=== PATIENT | male | born 1985 | race Caucasian/White ===

== ENCOUNTER 2019-12-29 09:19 | Emergency (ER) | payer OTHER ==
[~2019-12-29] VITALS: Ht 172.7 cm; Wt 142.9 kg
--- NOTE | 2019-12-29 09:25 | Emergency Department Note ---
History of Present Illnes History of Present Illness Chief Complaint: Genitourinary History of Present Illness This is a 34 year old male presents with R testicular pain of one day duration. Onset (how long ago): hour(s) Location: R testicle Radiation: Reports non-radiation Severity: mild Onset quality: gradual Duration (how long): hour(s) Timing of current episode: constant Progression: unchanged Chronicity: new Relieving factors: none Exacerbating factors: none Associated symptoms: Denies denies other symptoms, Denies confusion, Denies chest pain, Denies cough, Denies diaphoresis, Denies fever/chills, Denies headaches, Denies loss of appetite, Denies malaise, Denies nausea/vomiting, Denies rash, Denies seizure, Denies shortness of breath, Denies syncope, Denies weakness, Denies other Past Medical/Family History Physician Review I have reviewed the patient's past medical and family history. Any updates have been documented here. Review of Systems Review of Systems Constitutional: Reports no symptoms EENTM: Reports no symptoms Cardiovascular: Reports no symptoms Respiratory: Reports no symptoms Gastrointestinal: Reports no symptoms Genitourinary: Reports pain Musculoskeletal: Reports no symptoms Integumentary: Reports no symptoms Neurological: Reports no symptoms Psychological: Reports no symptoms Endocrine: Reports no symptoms Hematological/Lymphatic: Reports no symptoms Physical Exam Related Data Allergies: Coded Allergies: No Known Allergies (Unverified , 12/29/19) Triage Vital Signs Vital Signs Date Time Temp Pulse Resp B/P (MAP) Pulse Ox O2 Delivery O2 Flow Rate FiO2 12/29/19 09:22 98.1 78 16 159/92 100 Room Air Vital signs reviewed: Yes Physical Exam CONSTITUTIONAL Constitutional: Present well-developed, Present well-nourished HENT HENT: Present normocephalic, Present atraumatic, Present oropharynx clear/moist, Present nose normal HENT L/R: Present left ext ear normal, Present right ext ear normal EYES Eyes: Reports PERRL, Reports conjunctivae normal NECK Neck: Present ROM normal PULMONARY Pulmonary: Present effort normal, Present breath sounds normal CARDIOVASCULAR Cardiovascular: Present regular rhythm, Present heart sounds normal, Present capillary refill normal, Present normal rate GASTROINTESTINAL Abdominal: Present soft, Present nontender, Present bowel sounds normal GENITOURINARY Genitourinary: Present other SKIN Skin: Present warm, Present dry MUSCULOSKELETAL Musculoskeletal: Present ROM normal NEUROLOGICAL Neurological: Present alert, Present oriented x 3, Present no gross motor or sensory deficits PSYCHOLOGICAL Psychological: Present mood/affect normal, Present judgement normal Results Laboratory Lab results reviewed: Yes Imaging Imaging results reviewed: Yes Impressions [place] [id number] Patient Name: TAINA ANDERSON MR #: [id number] : 1985 Age/Sex: 34/M Req #: [id number] [facility] [place] Physician: Ordered by: JABIER JADE DO Report #: [id number] Location: ER Room/Bed: Procedure: [id number] US/US TESTICULAR Exam Date: 12/29/19 Exam Time: 0943 REPORT STATUS: Signed EXAM: Scrotal Ultrasound INDICATION: Right testicular pain ^R testicular pain COMPARISON: None TECHNIQUE: Transverse and longitudinal images were obtained of the scrotum with grayscale imaging, color Doppler and spectral waveform analysis. FINDINGS: Right testis: Size: 4.2 x 2.2 x 2.9 cm, normal in size. Echogenicity: Normal Mass/Cysts: None Left testis: Size: 3.6 x 1.8 x 3.6 cm, normal in size. Echogenicity: Normal Mass/Cysts: None Epididymis: Appearance: Normal in size without increased vascularity. Mass/Cysts: 0.2 cm left epididymal cyst/spermatocele. Extratesticular: Masses: None Fluid collections: Trace right and left hydroceles. Doppler: Normal arterial flow to both testes and symmetrical flow on color Doppler evaluation is seen. No evidence of testicular torsion. IMPRESSION: 1. No evidence of testicular torsion. 2. 0.2 cm left epididymal cyst/spermatocele. Trace right and left hydroceles. Signed by: Dr. Jey Dobson M.D. on 12/29/2019 10:17 AM Dictated By: JYE DOBSON MD, MD [id number] Transcribed By: RAFAEL on 12/31/19 1023 COPY TO: JABIER JADE DO~ Assessment & Plan Medical Decision Making MDM diff dx : epididymitis, testicular torsion, inguinal hernia Assessment & Plan Final Impression: (1) Right testicular pain Depart Disposition: HOME, SELF-CARE JABIER JADE DO Dec 29, 2019 09:25
[2019-12-29] MEDS ORDERED: HYDROCODONE/APAP 5MG-325MG TAB PO ONE (09:30)
--- OUTSIDE RECORDS SUMMARY | 2019-12-29 09:56 | XMS REPORT | Continuity of Care Document ---
Author Author Shagufta Wilson [employer] TAINA Palomares [employer] Address Unknown Phone Unavailable Care Team Providers Care Therapy Teacher Name Role Phone [employer] Unavailable Un available Problems Problem Status Onset Date Classification Date Reported Comments Source HYPERTENSIVE URGENCY Active 07/31/2016 [facility] DIZZINESS Active 08/14/2015 [facility] Discharge Diagnosis: Headache 08/14/2015 08/17/2015 [facility] Discharge Diagnosis: Sinus pain 08/14/2015 08/17/2015 [facility] Hypertensive disorder, systemic arterial (disorder) Resolved Problem 08/04/2016 [facility] Medications Medication Details Route Status Patient Instructions Ordering Provider Order Date Source Acetaminophen 300 MG / Codeine Phosphate 30 MG Oral Tablet [Tylenol with Codeine #3] 1 tab, PO, Q6H, PRN Pain, X 7 day, # 28 tab, 0 Refill(s) Active 08/01/2016 [facility] Amlodipine Notes: (Same as: No rvasc) Inactive 08/01/2016 [facility] Alprazolam 0.25 MG Oral Tablet [Xanax] Notes: With food or milk (Same as: Xanax) No Longer Active 07/31/2016 [facility] ketOROLAC 30 mg/mL injectable solution 4 days MEDICATION WASTE Product Size: 30 mg Product Wasted: __0_ mg No Longer Active 07/31/2016 [facility] Ativan Notes: (Same as: Ativan) Inactive 07/31/2016 [facility] Hydralazine Notes: (Same as: A presoline) Push over 5 minutes No Longer Active 07/31/2016 [facility] Amlodipine 5 mg, PO, Daily, 0 Refill(s) Active 07/31/2016 [facility] Sodium Chloride 0.154 MEQ/ML Injectable Solution 1,000 mL, Rate: 125 ml/hr, Infuse over: 8 hr, Route: IV, Dosing Weight 131.818 kg, Total Volume: 1,000, Start date: 07/31/16 13:26:00 CDT, Duration: 30 day, Stop date: 08/30/16 13:25:00 CDT No Longer Active 07/31/2016 [facility] Ondansetron Notes: (Same as: Fidel scott) MEDICATION WASTE Product Size: 4 mg Product Wasted: ___ mg No Longer Active 07/31/2016 [facility] Acetaminophen 325 MG / Hydrocodone Leonid trate 5 MG Oral Tablet Notes: (Same as: Indore 325/5) Do not ex ceed 4gm/day of acetaminophen. No Longer Active 07/31/2016 [facility] Ketorolac 30 mg, Route: IVP, D rug form: INJ, ONCE, Dosing Weight 131.818, kg, Priority: STAT, Start date: 07/31/16 12:32:00 CDT, Stop date: 07/31/16 12:32:00 CDT Inactive 07/31/2016 [facility] Sodium Chloride 0.9% IV 25 mL, Route: IV, Start date: 07/31/16 12:30:00 CDT, Duration: 30 day, Stop date: 08/30/16 12:29:00 CDT, PRN Line Flush No Longer Active 07/31/2016 [facility] Hydralazine Notes: (Same as: A presoline) Push over 5 minutes Inactive 07/31/2016 [facility] Labetalol 10 mg, Route: IV, ON CE, Dosing Weight 131.818, kg, Priority: STAT, Start date: 07/31/16 12:14:00 CDT, Stop date: 07/31/16 12:14:00 CDT Inactive 07/31/2016 [facility] Saline Flush 0.9% Notes: (Same as: BD Posiflush) No Longer Active 07/31/2016 [facility] Sodium Chloride 0.154 MEQ/ML Injectable Solution 1,000 mL, 1,000 ml/hr, Infuse Over: 1 hr, Route: IV, 1,000, Drug form: INJ, ONCE, Priority: STAT, Dosing Weight 136.364 kg, Start date: 08/14/15 17:15:00 CDT, Duration: 1 doses or times, Stop date: 08/14/15 17:15:00 CDT Inactive 08/14/2015 [facility] Ketorolac 4 days MEDICA TION WASTE Product Size: 30 mg Product Wasted: _0__ mg Inactive 08/14/2015 [facility] Reglan Notes: (Same as: Reglan) Inactive 08/14/2015 [facility] Acetaminophen 325 MG / Hydrocodone Leonid trate 5 MG Oral Tablet [Indore 5/325] 1 tab, Route: PO, Drug Form: TAB, Dosing Weight 136.364, kg, ONCE, STAT, Start date: 08/14/15 16:29:00 CDT, Stop date: 08/14/15 16:29:00 CDT Inactive 08/14/2015 [facility] Allergies, Adverse Reactions, Alerts No Known Medication Allergies Immunizations Immunization Date Given Site Status Last Updated Comments Source pneumococcal 23-valent vaccine 08/01/2016 Left Deltoid completed Idaniaff [facility] Results Order Name Results Value Reference Range Date Interpretation Comments Source IMMUNOLOGY HIV Ag/Ab 4th Gen Negat rupali *NA* (07/31/16 5:22 PM) Negative 07/31/2016 [facility] CARDIAC ENZYMES Total CK 107 12 - 191 07/31/2016 [facility] CARDIAC ENZYMES CK MB 1.1 0.5 - 3.6 07/31/2016 [facility] CARDIAC ENZYMES Troponin-I <0.02 0.00 - 0.40 07/31/2016 [facility] CARDIAC ENZYMES CK MB Index 1.0 0.0 - 2.5 07/31/2016 [facility] CHEM PANEL eGFR 116 07/31/2016 Result Comment: The eGFR is calculated using the CKD-EPI formula. In most young, healthy individuals the eGFR will be >90 mL/min/1.73m2. The eGFR declines with age. An eGFR of 60-89 may be normal in some populations, particularly the elderly, for whom the CKD-EPI formula has not been extensively validated. Use of the eGFR is not recommended in the following populations:

Individuals with unstable creatinine concentrations, including patients and those with serious co-morbid conditions.

Patients with extremes in muscle mass or diet.

The data above are obtained from the National Kidney Disease Education Program (NKDEP) which additionally recommends that when the eGFR is used in patients with extremes of body mass index for purposes of drug dosing, the eGFR should be multiplied by the estimated BMI. [facility] CHEM PANEL A/G Ratio 0.9 0.7 - 1.6 07/31/2016 [facility] CHEM PANEL Globulin 4.1 2.7 - 4.2 07/31/2016 [facility] CHEM PANEL B/C Ratio 16 6 - 25 07/31/2016 [facility] CHEM PANEL Alk Phos 118 39 - 136 07/31/2016 [facility] CHEM PANEL AGAP 13.9 10.0 - 20.0 07/31/2016 [facility] CHEM PANEL Bili Total 0.4 0.2 - 1.3 07/31/2016 [facility] CHEM PANEL ALT 46 0 - 65 07/31/2016 [facility] CHEM PANEL Albumin Lvl 3.7 3.5 - 5.0 07/31/2016 [facility] CHEM PANEL AST 24 0 - 37 07/31/2016 [facility] CHEM PANEL Chloride Lvl 102 95 - 109 07/31/2016 [facility] CHEM PANEL CO2 27 24 - 32 07/31/2016 [facility] CHEM PANEL Calcium Lvl 8.8 8.5 - 10.5 07/31/2016 [facility] CHEM PANEL Total Protein 7.8 6.4 - 8.4 07/31/2016 [facility] CHEM PANEL Sodium Lvl 139 135 - 145 07/31/2016 [facility] CHEM PANEL Potassium Lvl 3.9 3.5 - 5.1 07/31/2016 [facility] CHEM PANEL Creatinine Lvl 0.85 0.50 - 1.40 07/31/2016 [facility] CHEM PANEL BUN 14 7 - 22 07/31/2016 [facility] CHEM PANEL Glucose Lvl 99 70 - 99 07/31/2016 [facility] HEMATOLOGY Hct 43.5 42.0 - 54.0 07/31/2016 [facility] HEMATOLOGY MCHC 34.6 32.0 - 36.0 07/31/2016 [facility] HEMATOLOGY MCH 28.4 27.0 - 31.0 07/31/2016 [facility] HEMATOLOGY RBC 5.31 4.70 - 6.10 07/31/2016 [facility] HEMATOLOGY Hgb 15.1 14.0 - 18.0 07/31/2016 [facility] HEMATOLOGY WBC 9.1 3.7 - 10.4 07/31/2016 [facility] HEMATOLOGY MCV 82.0 80.0 - 94.0 07/31/2016 [facility] HEMATOLOGY Platelet 285 133 - 450 07/31/2016 [facility] HEMATOLOGY MPV 8.3 7.4 - 10.4 07/31/2016 [facility] HEMATOLOGY RDW 12.6 11.5 - 14.5 07/31/2016 [facility] HEMATOLOGY Eosinophils # 0.1 0.0 - 0.5 07/31/2016 [facility] HEMATOLOGY Monocytes # 0.8 0.0 - 0.8 07/31/2016 [facility] HEMATOLOGY Basophils # 0.1 0.0 - 0.2 07/31/2016 [facility] HEMATOLOGY Lymphocytes 24.4 20.0 - 40.0 07/31/2016 [facility] HEMATOLOGY Segs 65.2 45.0 - 75.0 07/31/2016 [facility] HEMATOLOGY Eosinophils 1.4 0.0 - 4.0 07/31/2016 [facility] HEMATOLOGY Basophils 0.6 0.0 - 1.0 07/31/2016 [facility] HEMATOLOGY Monocytes 8.4 2.0 - 12.0 07/31/2016 [facility] HEMATOLOGY Lymphocytes # 2.2 1.0 - 5.5 07/31/2016 [facility] HEMATOLOGY Segs-Bands # 6.0 1.5 - 8.1 07/31/2016 [facility] URINE AND STOOL UA Urobilinogen <=1.0 mg/dL 0.1 - 1.0 07/31/2016 [facility] URINE AND STOOL UA Sq Epi Occasional /LPF Few /LPF 07/31/2016 [facility] URINE AND STOOL UA Leuk Est Negative (07/31/16 9:54 AM) Negative 07/31/2016 [facility] URINE AND STOOL UA RBC <1 0 - 2 07/31/2016 [facility] URINE AND STOOL UA Color Light Yellow *NA* (07/31/16 9:54 AM) Yellow 07/31/2016 [facility] URINE AND STOOL UA pH 6.0 5.0 - 8.0 07/31/2016 [facility] URINE AND STOOL UA Spec Grav 1.006 <=1.030 07/31/2016 [facility] URINE AND STOOL UA Turbidity Clear (07/31/16 9:54 AM) Clear 07/31/2016 [facility] URINE AND STOOL UA Ketones Negative mg/dL Negative mg/dL 07/31/2016 [facility] URINE AND STOOL UA Blood Negative (07/31/16 9:54 AM) Negative 07/31/2016 [facility] URINE AND STOOL UA Bili Negative *NA* (07/31/16 9:54 AM) Negative 07/31/2016 [facility] URINE AND STOOL UA Nitrite Negative (07/31/16 9:54 AM) Negative 07/31/2016 [facility] URINE AND STOOL UA Protein Negative mg/dL Negative mg/dL 07/31/2016 [facility] URINE AND STOOL UA Glucose Negative mg/dL Negative mg/dL 07/31/2016 [facility] CHEM PANEL Magnesium Lvl 2.1 1.8 - 2.4 08/14/2015 [facility] CHEM PANEL Creatinine Lvl 0.96 0.50 - 1.40 08/14/2015 [facility] CHEM PANEL BUN 13 7 - 22 08/14/2015 [facility] CHEM PANEL Glucose Lvl 112 70 - 99 08/14/2015 [facility] CHEM PANEL Calcium Lvl 9.4 8.5 - 10.5 08/14/2015 [facility] CHEM PANEL CO2 27 24 - 32 08/14/2015 [facility] CHEM PANEL Chloride Lvl 104 95 - 109 08/14/2015 [facility] CHEM PANEL Potassium Lvl 3.9 3.5 - 5.1 08/14/2015 [facility] CHEM PANEL Sodium Lvl 139 135 - 145 08/14/2015 [facility] CHEM PANEL AGAP 11.9 10.0 - 20.0 08/14/2015 [facility] CHEM PANEL eGFR 106 08/14/2015 Result Comment: The eGFR is calculated using the CKD-EPI formula. In most young, healthy individuals the eGFR will be >90 mL/min/1.73m2. The eGFR declines with age. An eGFR of 60-89 may be normal in some populations, particularly the elderly, for whom the CKD-EPI formula has not been extensively validated. Use of the eGFR is not recommended in the following populations:

Individuals with unstable creatinine concentrations, including patients and those with serious co-morbid conditions.

Patients with extremes in muscle mass or diet.

The data above are obtained from the National Kidney Disease Education Program (NKDEP) which additionally recommends that when the eGFR is used in patients with extremes of body mass index for purposes of drug dosing, the eGFR should be multiplied by the estimated BMI. [facility] HEMATOLOGY RBC 5.52 4.70 - 6.10 08/14/2015 [facility] HEMATOLOGY Hgb 15.5 14.0 - 18.0 08/14/2015 [facility] HEMATOLOGY Hct 46.6 42.0 - 54.0 08/14/2015 [facility] HEMATOLOGY MCV 84.3 80.0 - 94.0 08/14/2015 [facility] MCH 28.0 27.0 - 31.0 08/14/2015 [facility] HEMATOLOGY MPV 7.9 7.4 - 10.4 08/14/2015 [facility] HEMATOLOGY RDW 12.7 11.5 - 14.5 08/14/2015 [facility] HEMATOLOGY Platelet 343 133 - 450 08/14/2015 [facility] HEMATOLOGY MCHC 33.2 32.0 - 36.0 08/14/2015 [facility] HEMATOLOGY WBC 9.9 3.7 - 10.4 08/14/2015 [facility] HEMATOLOGY Eosinophils 0.7 0.0 - 4.0 08/14/2015 [facility] HEMATOLOGY Basophils 0.3 0.0 - 1.0 08/14/2015 [facility] HEMATOLOGY Lymphocytes 20.0 20.0 - 40.0 08/14/2015 [facility] HEMATOLOGY Segs 71.1 45.0 - 75.0 08/14/2015 [facility] HEMATOLOGY Monocytes 7.9 2.0 - 12.0 08/14/2015 [facility] HEMATOLOGY Basophils # 0.0 0.0 - 0.2 08/14/2015 [facility] HEMATOLOGY Lymphocytes # 2.0 1.0 - 5.5 08/14/2015 [facility] HEMATOLOGY Segs-Bands # 7.0 1.5 - 8.1 08/14/2015 [facility] HEMATOLOGY Eosinophils # 0.1 0.0 - 0.5 08/14/2015 [facility] HEMATOLOGY Monocytes # 0.8 0.0 - 0.8 08/14/2015 [facility] Pathology Reports No Data Provided for This Section Diagnostic Reports Report Value Date Source Spine lumbar wo contrast CT Sp ine lumbar wo contrast CT, 08/01/2016 11:00 AM CDT HISTORY: Low back pain and weakness COMPARISON: None TECHNIQUE: Multiple contiguous axials images were obtained through the lumbar spine without contrast. Coronal and sagittal reconstructed images were obtained. CT Radiation Dose DLP 1377 mGy-cm FINDINGS: 5 lumbar type vertebral bodies. There is no evidence for acute fracture. Vertebral heights are maintained. Anatomic alignment. Minimal facet arthrosis. There is no high-grade bony central canal or foraminal stenosis. The paraspinal soft tissues appear unremarkable. IMPRESSION: 1. No acute fracture or malalignment lum bar spine. Minimal facet osteoarthropathy. No significant bony central canal or foraminal stenosis. If there is persistent clinical concern consider follow-up MRI. SL: [id number] 08/01/2016 [facility] Brain wo contrast MRI Procedur e: MRI Brain without Contrast. Clinical Indication: Bilateral facial numbness, tingling. Comparison: Head CT 07/31/2016. TECHNIQUE: MRI of the brain is performed without contrast. Only diffusion- weighted and ADC mapping images could be obtained before the patient refused to continue imaging. FINDINGS: BRAIN PARENCHYMA: Diffusion-weighted imaging fails to demonstrate evidence of acute ischemia. The ventricular systems are midline and nondilated. No intracranial mass is observed. IMPRESSION: 1. Limited MRI of the brain without evid ence of acute infarct on diffusion- weighted imaging. SL:[id number] 07/31/2016 [facility] Brain wo contrast CT Addendum: I have reviewed this examination and concur with the interpretation. NON CONTRAST HEAD CT: HISTORY: Altered mental status, weakness Noncontrast axial scans were obtained through the brain utilizing soft tissue and bone windows. Comparison made to 08/14/2015. No intracranial hemorrhage, mass or midline shift noted. Normal attenuation is found throughout the brain parenchyma. No extra-axial fluid collections are observed. No evidence of acute infarct. Review of the bone windows shows no evidence of calvarial fracture. Mastoid air cells are clear. There are some chronic mucosal thickening in each maxillary sinus. IMPRESSION: No acute intracranial abnormality. SL: [id number] 07/31/2016 [facility] Scrotal/Testicle w Doppler US PROCEDURE: SCROTAL ULTRASOUND 07/31/2016. INDICATION: Bilateral testicular pain and fullness for 2 weeks, right greater than left. COMPARISON: None relevant. TECHNIQUE: Sonographic evaluation of the scrotum and testes was performed using high resolution B-mode imaging, pulse and color Doppler imaging. FINDINGS: TESTES: The right testicle measures 4.3 x 2.1 x 2.9 cm. The left testicle measures 4 x 2 x 2.4 cm. The testes are normal in contour, morphology and echogenicity. There are no testicular masses or calcifications. Blood flow is normal and symmetrical. EPIDIDYMIDES: Normal epididymal size with 2 left epididymal head cysts and/or spermatoceles measuring between 2-4 mm, the largest containing low level echo internal debris. SCROTUM: Low volume left scrotal hydrocele. No varicocele identified. IMPRESSION: 1. No sonographic evidence of testicular torsion, inflammation or mass. 2. Low-volume left scrotal hydrocele. 3. Small left epididymal head cysts and/ or spermatoceles. SL: [id number] 07/31/2016 [facility] Brain wo contrast CT PROCEDURE : CT HEAD WITHOUT CONTRAST Clinical Indication: Dizziness and disorientation 2 hours ago. Comparison: None TECHNIQUE: CT images were obtained from the foramen magnum to the vertex without the use of intravenous contrast on a multidetector CT. DLP: 1257 mGy-cm FINDINGS: BRAIN PARENCHYMA: There are normal concepcion-white interfaces, sulci and gyri. There are no focal mass lesions on this noncontrast head CT. There is no mass effect, midline shift or edema. There are no intra-axial or extra-axial fluid collections, intraventricular or intraparenchymal hemorrhage. The pineal, sellar, brainstem, cerebellum and skull base regions appear unremarkable. VENTRICLES: The ventricular system is normal. The basilar cisterns are normal. ORBITS, MASTOIDS AND PARANASAL SINUSES: The visualized orbits and paranasal sinuses are unremarkable. The mastoid air cells are clear. SKULL: The calvarium is intact. IMPRESSION: Unremarkable noncontrast head CT with no mass, hemorrhage or subacute stroke. END IMPRESSION SL:[id number] 08/14/2015 [facility] Consultation Notes No Data Provided for This Section Discharge Summaries No Data Provided for This Section History and Physicals No Data Provided for This Section Vital Signs Vital Sign Value Date Comments Source Respitory Rate 18 08/01/2016 [facility] Systolic (mm Hg) 126 08/01/2016 [facility] Diastolic (mm Hg) 83 08/01/2016 [facility] Heart Rate 82 08/01/2016 [facility] Temperature Oral (F) 98.1 F 08/01/2016 [facility] Systolic (mm Hg) 123 08/01/2016 [facility] Diastolic (mm Hg) 78 08/01/2016 [facility] Respitory Rate 18 08/01/2016 [facility] Heart Rate 69 08/01/2016 [facility] Temperature Oral (F) 97.7 F 08/01/2016 [facility] Temperature Oral (F) 98.0 F 08/01/2016 [facility] Respitory Rate 18 08/01/2016 [facility] Heart Rate 77 08/01/2016 [facility] Systolic (mm Hg) 129 08/01/2016 [facility] Diastolic (mm Hg) 75 08/01/2016 [facility] BMI Calculated 44.95 07/31/2016 [facility] Weight 134.091 07/31/2016 [facility] Height 172.72 cm 07/31/2016 [facility] Weight 131.818 07/31/2016 [facility] Height 172.72 cm 07/31/2016 [facility] BMI Calculated 44.19 07/31/2016 [facility] Temperature Oral (F) 98 F 08/15/2015 [facility] Systolic (mm Hg) 129 08/15/2015 [facility] Diastolic (mm Hg) 85 08/15/2015 [facility] Heart Rate 88 08/15/2015 [facility] Respitory Rate 20 08/15/2015 [facility] Weight 136.364 08/14/2015 [facility] Temperature Oral (F) 98.1 F 08/14/2015 [facility] Respitory Rate 18 08/14/2015 [facility] Heart Rate 89 08/14/2015 [facility] Systolic (mm Hg) 141 08/14/2015 [facility] Diastolic (mm Hg) 91 08/14/2015 [facility] Encounters Location Location Details Encounter Type Encounter Number Reason For Visit Attending Provider ADM Date DC Date Status Source [facility] [id number] Milli Jacobs 08/14/2015 08/15/2015 [facility] Observation [id number] Breana Lozano 07/31/2016 08/01/2016 [facility] Procedures Procedure Code Date Perfomer Comments Source Cholecystectomy [id number] [facility] Reconstruction of penis [id number] [facility] Repair of rotator cuff of shoulder [id number] [facility] Tonsillectomy [id number] [facility] Assessment and Plan No Data Provided for This Section Plan of Care No Data Provided for This Section Social History Social History Date Source Social History TypeResponse Smoking Status Never smoker; Exposure to Tobacco Smoke None; Cigarette Smoking Last 365 Days No; Reg Smoking Cessation Counseling No 07/31/2016 [facility] Family History No Data Provided for This Section Advance Directives No Data Provided for This Section Functional Status No Data Provided for This Section
--- NOTE | 2019-12-29 10:21 | Diagnostic Imaging Report ---
EXAM: Scrotal Ultrasound INDICATION: Right testicular pain ^R testicular pain COMPARISON: None TECHNIQUE: Transverse and longitudinal images were obtained of the scrotum with grayscale imaging, color Doppler and spectral waveform analysis. FINDINGS: Right testis: Size: 4.2 x 2.2 x 2.9 cm, normal in size. Echogenicity: Normal Mass/Cysts: None Left testis: Size: 3.6 x 1.8 x 3.6 cm, normal in size. Echogenicity: Normal Mass/Cysts: None Epididymis: Appearance: Normal in size without increased vascularity. Mass/Cysts: 0.2 cm left epididymal cyst/spermatocele. Extratesticular: Masses: None Fluid collections: Trace right and left hydroceles. Doppler: Normal arterial flow to both testes and symmetrical flow on color Doppler evaluation is seen. No evidence of testicular torsion. IMPRESSION: 1. No evidence of testicular torsion. 2. 0.2 cm left epididymal cyst/spermatocele. Trace right and left hydroceles. Signed by: Dr. Jey Dobson M.D. on 12/29/2019 10:17 AM
[2019-12-29] MEDS ORDERED: KETOROLAC TROMETHAMINE 60 MG/2 ML VIAL IM ONE (11:30)
== END 2019-12-29 11:58 | disposition home or self-care (01) ==
LOC: ER 09:53
DX: N50.811 Right testicular pain (principal); N43.40 Spermatocele of epididymis, unspecified; N43.3 Hydrocele, unspecified
CPT/HCPCS: 76870; 93976; 99283; J1885